=== PATIENT | male | born 1970 | race Caucasian/White ===

== ENCOUNTER 2017-03-02 22:00 | Inpatient (IN) ==
[2017-03-02] MEDS ORDERED: LORazepam 2 MG/ML VIAL IM ONE (22:20)
--- NOTE | 2017-03-02 22:25 | Emergency Department Note ---
Seizure HPI - General Chief Complaint: Headache Stated Complaint: epileptic seizure about 1 hr ago Time Seen by Provider: 03/02/17 22:19 Source: patient, other Mode of arrival: ambulatory - History of Present Illness HPI Narrative: This 46-year-old gentleman comes to the emergency room describing that he had a seizure at home about an hour prior or more before coming to the emergency room EMS had been summoned and he refused to go. A friend then convinced him to come. This friend is from his work and her name is Moon, who seems to be both caring and seems to know him fairly well. He reported a headache that was moderate to severe all day long during work. Then he apparently had a seizure. He became confused and disoriented and was speaking gibberish and, not listening to others, not able to sit still, agitated and persisted with his headache. She convinced him to come to the emergency room For further evaluation and/or treatment. - Related Data Home Medications Medication Instructions Recorded Confirmed Losartan [Cozaar] 25 mg PO DAILY 10/06/15 06/13/16 carBAMazepine [Carbatrol] 200 mg PO DAILY 10/06/15 06/13/16 Allergies Allergy/AdvReac Type Severity Reaction Status Date / Time NO KNOWN DRUG ALLERGIES Allergy Unknown Uncoded 07/21/14 07:08 Review of Systems Review of Systems: General: Denies fevers and chills. CV: Has had some minor chest pains but he relates this to a recent URI. Pulmonary: Has had some cough and shortness of breath which he reports are chronic. GI: Occasional abdominal pain. He denies nausea and vomiting. : He denies dysuria. Derm: He denies rashes. He has some lesions on his left chest wall area. He thinks that they might be spider bites. Neuro: Has had headaches as described above. 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 Heart murmur.). Denies: cancer, CVA, DM, hyperlipidemia, myocardial infarction, thyroid disease, TIA Psychiatric history: Denies: anxiety, depression Surgical history ED: Reports: no surgical history - Social History smoking status: Never smoker Alcohol use: Reports: Frequently (He drinks up to 4 beer at it time and he does this off and on sometimes daily sometimes not.) Drug use: Reports: marijuana (Past, none current.) Physical Exam General appearance: alert, anxious, other (agitated at times. ) Head: normocephalic, other (3 abrasions that are pink-red on the upper forehead ; trace swelling.) Eye: Present: EOMI, other (moderate to severe exophthalmous.) ENT: mucous membranes moist, nasal congestion (mild) Neck: Present: trachea midline. Absent: tenderness, lymphadenopathy, thyromegaly Respiratory: Present: normal lung sounds bilaterally. Absent: respiratory distress, wheezes, stridor, accessory muscle use, prolonged expiratory phase Cardiovascular: Present: regular rate, normal rhythm, systolic murmur (fairly loud; aortic post; 2-3/6.). Absent: diastolic murmur Abdominal: Present: other (moderately firm.). Absent: distention, tenderness, guarding, rebound, rigidity Extremities: Absent: pedal edema, pretibial edema, calf tenderness Neurological: Present: alert, normal gait. Absent: oriented X3 Psychiatric: Present: agitated, anxious, other (tangential, confused, sometimes not answering questions; poor eye contact.) Skin: Present: warm, dry, other (mild to moderate healing shingles in rib nerve root approximately R6 on the left chest wall noted.) Course Vital Signs Temperature 96.9 F L 03/02/17 22:02 Blood Pressure 186/104 03/02/17 22:02 Pulse Oximetry (%) 93 03/02/17 22:02 Temperature 96.9 F L 03/02/17 22:02 Pulse Rate 63 03/03/17 01:45 Respiratory Rate 16 03/03/17 01:45 Blood Pressure 163/91 03/03/17 01:45 Pulse Oximetry (%) 100 03/02/17 23:06 Seizure - MDM Narrative Medical decision making narrative: Patient's friend was quite helpful. She described him as usually quite calm and somewhat reserved. He was quite a bit different than that with speaking in ways not always making sense and somewhat confused and sometimes not listening or answering questions and repeating some things. He sometimes would hold his head as well as he described pain. He describes it as heart murmur he has had in the past. 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 He denies missing doses of his carbamazepine. Because of this unusual situation and presentation, multiple labs were ordered and a CT scan of his head was ordered. Labs were fairly unremarkable except for a sodium of 121 and a mild anemia. A mild liver function test was at 52 for the AST. He demonstrated shingles on his chest wall. Repeat exam around 1:00 demonstrated a market improvement in that he had much less agitation and gibberish or confused thinking and speech and behaviors. With his low sodium, a seizure, and significant mental status changes, I strongly felt he should be observed and monitored and treated. This was discussed with the hospitalist Dr. Robles, who kindly agreed to accept this patient who was admitted to telemetry. - Lab Data Result diagrams: 03/02/17 22:37 03/02/17 22:37 Lab Results 03/02/17 03/02/17 03/02/17 Range/Units 22:37 22:37 22:37 WBC 7.6 (4.5-11.0) K/mcL RBC 4.30 L (4.50-5.90) M/mcL Hgb 13.4 L (13.5-16.5) g/dL Hct 39.7 L (41.0-55.0) % MCV 92.3 (80.0-100.0) fL MCH 31.3 (26.0-34.0) pg MCHC 33.9 (31.0-36.0) g/dL RDW 12.3 (11.5-14.5) % Plt Count 191 (140-440) K/mcL MPV 8.3 (7.4-10.4) fL Gran % 71.3 (38.0-78.0) % Lymph % (Auto) 15.2 L (15.5-49.0) % [place] % (Auto) 11.7 (1.0-12.0) % Eos % (Auto) 1.3 (0.0-7.0) % Baso % (Auto) 0.5 (0.0-2.0) % Gran # 5.4 (1.8-8.0) K/mcL Lymph # (Auto) 1.2 L (1.5-4.8) K/mcL [place] # (Auto) 0.9 (0.1-0.9) K/mcL Eos # (Auto) 0.1 (0.0-0.7) K/mcL Baso # (Auto) 0 (0.0-0.3) K/mcL PT 13.6 (11.9-14.5) sec INR 1.0 (0.9-1.1) APTT 31 (20-37) sec Sodium 121 L (133-145) mmol/L Potassium 3.9 (3.3-5.1) mmol/L Chloride 82 L (96-108) mmol/L Carbon Dioxide 23 (22-30) mmol/L Anion Gap 16.0 (8-16) BUN 14 (6-20) mg/dl Creatinine 0.7 (0.7-1.2) mg/dl GFR Calculation 112 Glucose 116 H (70-105) mg/dL Calcium 9.2 (8.6-10.4) mg/dl Total Bilirubin 0.4 (0.0-1.0) mg/dL AST 52 H (0-37) U/l ALT 30 (0-40) U/l Alkaline Phosphatase 90 (39-117) U/L Total Protein 7.1 (5.9-8.4) gm/dL Albumin 4.6 (3.2-5.2) gm/dL Globulin 2.5 (2.2-3.7) gm/dL Albumin/Globulin Ratio 1.8 (1.0-2.3) TSH (0.27-5.01) uIU/ml Salicylates mg/dL Urine Opiates Screen (NONDETECTED) Ur Oxycodone Screen (NONDETECTED) Urine Methadone Screen (NONDETECTED) Ur Barbiturates Screen (NONDETECTED) Carbamazepine ug/mL Ur Phencyclidine Scrn (NONDETECTED) Ur Amphetamines Screen (NONDETECTED) U Benzodiazepines Scrn (NONDETECTED) Urine Cocaine Screen (NONDETECTED) U Marijuana (THC) Screen (NONDETECTED) Ethyl Alcohol (<0.010) gm/dl 03/02/17 03/02/17 03/02/17 Range/Units 22:37 22:37 22:37 WBC (4.5-11.0) K/mcL RBC (4.50-5.90) M/mcL Hgb (13.5-16.5) g/dL Hct (41.0-55.0) % MCV (80.0-100.0) fL MCH (26.0-34.0) pg MCHC (31.0-36.0) g/dL RDW (11.5-14.5) % Plt Count (140-440) K/mcL MPV (7.4-10.4) fL Gran % (38.0-78.0) % Lymph % (Auto) (15.5-49.0) % [place] % (Auto) (1.0-12.0) % Eos % (Auto) (0.0-7.0) % Baso % (Auto) (0.0-2.0) % Gran # (1.8-8.0) K/mcL Lymph # (Auto) (1.5-4.8) K/mcL [place] # (Auto) (0.1-0.9) K/mcL Eos # (Auto) (0.0-0.7) K/mcL Baso # (Auto) (0.0-0.3) K/mcL PT (11.9-14.5) sec INR (0.9-1.1) APTT (20-37) sec Sodium (133-145) mmol/L Potassium (3.3-5.1) mmol/L Chloride (96-108) mmol/L Carbon Dioxide (22-30) mmol/L Anion Gap (8-16) BUN (6-20) mg/dl Creatinine (0.7-1.2) mg/dl GFR Calculation Glucose (70-105) mg/dL Calcium (8.6-10.4) mg/dl Total Bilirubin (0.0-1.0) mg/dL AST (0-37) U/l ALT (0-40) U/l Alkaline Phosphatase (39-117) U/L Total Protein (5.9-8.4) gm/dL Albumin (3.2-5.2) gm/dL Globulin (2.2-3.7) gm/dL Albumin/Globulin Ratio (1.0-2.3) TSH 2.36 (0.27-5.01) uIU/ml Salicylates mg/dL Urine Opiates Screen (NONDETECTED) Ur Oxycodone Screen (NONDETECTED) Urine Methadone Screen (NONDETECTED) Ur Barbiturates Screen (NONDETECTED) Carbamazepine 4.7 ug/mL Ur Phencyclidine Scrn (NONDETECTED) Ur Amphetamines Screen (NONDETECTED) U Benzodiazepines Scrn (NONDETECTED) Urine Cocaine Screen (NONDETECTED) U Marijuana (THC) Screen (NONDETECTED) Ethyl Alcohol < 0.010 (<0.010) gm/dl 03/02/17 03/02/17 Range/Units 22:37 23:26 WBC (4.5-11.0) K/mcL RBC (4.50-5.90) M/mcL Hgb (13.5-16.5) g/dL Hct (41.0-55.0) % MCV (80.0-100.0) fL MCH (26.0-34.0) pg MCHC (31.0-36.0) g/dL RDW (11.5-14.5) % Plt Count (140-440) K/mcL MPV (7.4-10.4) fL Gran % (38.0-78.0) % Lymph % (Auto) (15.5-49.0) % [place] % (Auto) (1.0-12.0) % Eos % (Auto) (0.0-7.0) % Baso % (Auto) (0.0-2.0) % Gran # (1.8-8.0) K/mcL Lymph # (Auto) (1.5-4.8) K/mcL [place] # (Auto) (0.1-0.9) K/mcL Eos # (Auto) (0.0-0.7) K/mcL Baso # (Auto) (0.0-0.3) K/mcL PT (11.9-14.5) sec INR (0.9-1.1) APTT (20-37) sec Sodium (133-145) mmol/L Potassium (3.3-5.1) mmol/L Chloride (96-108) mmol/L Carbon Dioxide (22-30) mmol/L Anion Gap (8-16) BUN (6-20) mg/dl Creatinine (0.7-1.2) mg/dl GFR Calculation Glucose (70-105) mg/dL Calcium (8.6-10.4) mg/dl Total Bilirubin (0.0-1.0) mg/dL AST (0-37) U/l ALT (0-40) U/l Alkaline Phosphatase (39-117) U/L Total Protein (5.9-8.4) gm/dL Albumin (3.2-5.2) gm/dL Globulin (2.2-3.7) gm/dL Albumin/Globulin Ratio (1.0-2.3) TSH (0.27-5.01) uIU/ml Salicylates 1.3 mg/dL Urine Opiates Screen None detected (NONDETECTED) Ur Oxycodone Screen None detected (NONDETECTED) Urine Methadone Screen None detected (NONDETECTED) Ur Barbiturates Screen None detected (NONDETECTED) Carbamazepine ug/mL Ur Phencyclidine Scrn None detected (NONDETECTED) Ur Amphetamines Screen None detected (NONDETECTED) U Benzodiazepines Scrn None detected (NONDETECTED) Urine Cocaine Screen None detected (NONDETECTED) U Marijuana (THC) Screen None detected (NONDETECTED) Ethyl Alcohol (<0.010) gm/dl Disposition Pt seen by [facility]/PA only: No Clinical Impression: Seizure, Heart murmur, Hyponatremia, Multiple abrasions, Elevated LFTs, Exophthalmos Mental status change Qualifiers: Altered mental status type: disorientation Qualified Code(s): R41.0 - Disorientation, unspecified Headache Qualifiers: Headache type: other headache syndrome Qualified Code(s): G44.89 - Other headache syndrome Shingles rash Qualifiers: Herpes zoster complications: without complications Qualified Code(s): B02.9 - Zoster without complications Aspirin overdose Qualifiers: Encounter type: initial encounter Injury intent: accidental or unintentional Qualified Code(s): T39.011A - Poisoning by aspirin, accidental (unintentional), initial encounter Disposition: Xfer As Inpt ([facility]) Condition: Serious Referrals: Suzi Quan MD [Primary Care Provider] -
[2017-03-02 23:04] LABS: Basophils # (Auto) 0 K/mcL (0.0-0.3); Basophils % (Auto) 0.5 % (0.0-2.0); Eosinophils # (Auto) 0.1 K/mcL (0.0-0.7); Eosinophils % (Auto) 1.3 % (0.0-7.0); Granulocytes % (Auto) 71.3 % (38.0-78.0); Lymphocytes # (Auto) 1.2 K/mcL (1.5-4.8); Lymphocytes % (Auto) 15.2 % (15.5-49.0); Mean Cell Volume 92.3 fL (80.0-100.0); Mean Corpuscular HGB Conc 33.9 g/dL (31.0-36.0); Mean Corpuscular Hemoglobin 31.3 pg (26.0-34.0); Monocytes # (Auto) 0.9 K/mcL (0.1-0.9); Monocytes % (Auto) 11.7 % (1.0-12.0); Platelet Count 191 K/mcL (140-440); Red Cell Distribution Width 12.3 % (11.5-14.5)
[2017-03-02 23:19] LABS: ALT/SGPT 30 U/l (0-40); Albumin 4.6 gm/dL (3.2-5.2); Albumin/Globulin Ratio 1.8 (1.0-2.3); Alkaline Phosphatase 90 U/L (39-117); Blood Urea Nitrogen 14 mg/dl (6-20)
[2017-03-02] MEDS ORDERED: ACETAMINOPHEN 325 MG TABLET PO ONE (23:37)
[2017-03-03 00:06] LABS: Amphetamine Screen,Urine NONE DETECTED (NONDETECTED); Benzodiazepines Screen,Urine NONE DETECTED (NONDETECTED); Cocaine Screen,Urine NONE DETECTED (NONDETECTED); Opiate Screen,Urine NONE DETECTED (NONDETECTED); Oxycodone, Urine Screen NONE DETECTED (NONDETECTED)
[2017-03-03] MEDS ORDERED: ACETAMINOPHEN 325 MG TABLET PO PRN (01:17)
[2017-03-03] MEDS ORDERED: 0.9 % SODIUM CHLORIDE 1,000 ML IV SCH (01:30)
--- NOTE | 2017-03-03 06:04 | Cat Scan Report ---
CLINICAL INFORMATION: Seizures COMPARISON: None. TECHNIQUE: Axial noncontrast-enhanced images through the brain. FINDINGS: No acute intracranial hemorrhage. No intra-axial hematoma. No focal attenuation abnormality or localized mass effect. No midline shift. No hydrocephalus. There is cerebellar atrophy. Brainstem is within normal limits. No intra-axial abnormalities. No extra-axial, intracranial abnormality. No subdural hemorrhage. No subarachnoid hemorrhage. Basilar cisterns are normal. No calvarial fracture. No lytic lesion. Skull base is negative. Examination was initially interpreted by [facility] IMPRESSION: 1. Cerebellar atrophy 2. No acute intracranial abnormality The exam was performed using radiation dose optimization techniques including, but not limited to, automated exposure control, adjustment of the mA and/or kV according to patient size and use of iterative reconstruction technique. Interpreted and Authenticated by: Dequan Mejía 03/03/17
[2017-03-03 06:27] LABS: ALT/SGPT 27 U/l (0-40); Albumin 4.5 gm/dL (3.2-5.2); Alkaline Phosphatase 86 U/L (39-117); Bilirubin,Direct < 0.2 mg/dL (0.0-0.3); Blood Urea Nitrogen 9 mg/dl (6-20); Gamma Glutamyl Transpeptidase 49 U/L (8-61); Magnesium 1.8 mg/dL (1.6-2.5); Uric Acid 4.2 mg/dL (2.5-8.0)
[2017-03-03] MEDS ORDERED: THIAMINE 100 MG in 0.9 % SODIUM CHLORIDE 50 ML IV SCH (09:00)
[2017-03-03] MEDS: CARBAMAZEPINE 300 MG PO SCH (10:23)
[2017-03-03 11:22] LABS: Osmolality,Urine 108 mOsm/kg (80-1000)
--- NOTE | 2017-03-03 11:37 | History and Physical Report ---
DATE OF ADMISSION: 03/03/2017 DATE OF ADMISSION: 03/03/2017 REASON FOR ADMISSION: Breakthrough seizures. HISTORY OF CHIEF COMPLAINT: The patient is a 46-year-old with known history of seizure disorder on carbamazepine and was in a baseline state of health. The patient, per history from the ER, had a seizure in the evening and subsequently told his friend. He was brought in to the emergency department by his friend. Initial workup was remarkable for a sodium of 121. However, patient did not have a witnessed seizure but has had profound mental status change. Initial head CT was negative. The patient carries a history of seizure disorder and has been on carbamazepine. His level has been therapeutic. The patient also drinks roughly four to five alcoholic beverages a day including beer. It is unclear exactly what the precipitant was and subsequently Hospitalist Service was consulted for further evaluation and workup. Because of the patient's underlying mental status, no significant history could be obtained in the ER. At the time of evaluation, the patient is drowsy, fatigued, lethargic. No family members are present. Again, most of the history was obtained from review of medical records and ER physician. The patient was unable to provide answers to review of systems. PAST MEDICAL HISTORY: 1. History of seizure disorder. 2. Hypertension. CURRENT MEDICATIONS: 1. Carbamazepine 200 mg daily. 2. Losartan 25 mg daily. ALLERGIES: None significant. SOCIAL HISTORY: Regular alcohol use. Past history of marijuana. No significant substance or IV drug use. CODE STATUS: FULL CODE. PHYSICAL EXAMINATION: GENERAL: The patient is fatigued, lethargic, unable to respond to verbal questions. HEENT: Exophthalmic. Pupils, however, symmetric. Oral cavity is dry. Abrasion left side forehead. Nontender occiput. No bleeding ear or nose. NECK: No lymphadenopathy, no point tenderness. CHEST: S1, S2, regular rhythm. Diminished breath sounds at bases but symmetrical. ABDOMEN: Soft and nontender. LOWER EXTREMITIES: No cyanosis or clubbing. No joint swelling. SKIN: No suspicious lesions. PSYCHIATRIC: Fatigued, lethargic, confused but no agitation. NEURO: Moving all four extremities, but higher functions could not be performed. LABS AND IMAGING: White count 7.6, hemoglobin 13.4. INR 1. Sodium 121, potassium 3.9, creatinine 0.7. TSH 2.36. AST 52. Toxicology screen: Salicylates 1.3, carbamazepine 4.7, ethyl alcohol less than 0.01. CT head unremarkable except for cerebellar atrophy. ASSESSMENT AND PLAN: A 46-year-old with history of seizure disorder with breakthrough seizure. 1. Breakthrough seizure, unclear etiology. Carbamazepine level is therapeutic. Possibly secondary to precipitated by hyponatremia. Patient will be started on gradual salt replacement at this time. Since patient does not show any active seizures, 3% saline is not indicated. We will continue q.4. sodium checks and continue neurological checks along with seizure watch. Patient be admitted to ICU. 2. Hyponatremia could be secondary to beer potomania. However, in light of seizures SIADH could be truly a component. At this time we will check for urine and serum osmolality along with urine sodium. We will start free water restriction if evidence of ascites. 3. Hypertension. Continue losartan. 4. Prophylaxis will be on Lovenox. Overall, a high-complexity admit of a patient with severe symptomatic hyponatremia and seizures mandating ICU along with neuro checks and q.4 sodium monitoring. PLAN FOR TODAY: 1. q.4 sodium monitoring. 2. MRI brain. AA:salina Job ID: [id number] Doc ID: [id number] Terrell Robles MD
--- NOTE | 2017-03-03 14:43 | Magnetic Resonance Report ---
CLINICAL INFORMATION: Seizures. Agitation. Headache. TECHNIQUE: Sagittal, axial, coronal images of the brain. 7 mL gadolinium administered COMPARISON: Brain CT scan dated 03/02/2017 FINDINGS: No restricted diffusion. No acute infarction. Cerebral hemispheres are abnormal. Susceptibility images demonstrate multiple small round foci of susceptibility within both cerebral hemispheres. Appearance is consistent with hemosiderin deposition and suggests old posttraumatic brain injury. There are foci within the brachium pontis bilaterally and right cerebellar hemisphere. FLAIR images and T2-weighted images demonstrate multiple foci of increased signal intensity in the white matter of both cerebral hemispheres. Findings are in both a subcortical and periventricular distribution. Appearance is nonspecific. Findings may be due to small vessel ischemic change although this would be abnormal for age. Clinical correlation for hypertension or diabetes recommended. Distribution is atypical for demyelinating disease although this is possible. Vasculitis should be considered. No intra-axial enhancing lesions. No evidence for neoplasm. Cerebral hemispheres demonstrate normal brain volume. No hydrocephalus. There is cerebellar atrophy. Brainstem is negative. No extra-axial, intracranial abnormality. Normal flow void within vessels at the base of the brain. No pathologic leptomeningeal or dural enhancement. Temporal lobes are intrinsically negative. No focal signal abnormality. IMPRESSION: 1. No acute infarction. 2. Susceptibility images are abnormal with multiple small foci of susceptibility. 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 White matter abnormality is nonspecific 4. No enhancing abnormality. No evidence for neoplasm. 5. Cerebellar atrophy Interpreted and Authenticated by: Dequan Mejía 03/03/17
[2017-03-03] MEDS ORDERED: OLANZapine 2.5 MG TABLET PO ONE ×2 (21:43→21:56)
[2017-03-03] MEDS: LORazepam 2 MG/ML VIAL IV PRN (21:52)
[2017-03-03] MEDS ORDERED: ACYCLOVIR 400 MG TABLET PO ONE (21:55)
[2017-03-04] MEDS: LORazepam 2 MG/ML VIAL IV PRN (01:14)
[2017-03-04 05:20] LABS: Basophils # (Auto) 0 K/mcL (0.0-0.3); Basophils % (Auto) 0.5 % (0.0-2.0); Eosinophils # (Auto) 0.1 K/mcL (0.0-0.7); Eosinophils % (Auto) 2.5 % (0.0-7.0); Granulocytes % (Auto) 61.2 % (38.0-78.0); Lymphocytes # (Auto) 0.9 K/mcL (1.5-4.8); Lymphocytes % (Auto) 19.6 % (15.5-49.0); Mean Cell Volume 93.1 fL (80.0-100.0); Mean Corpuscular HGB Conc 33.8 g/dL (31.0-36.0); Mean Corpuscular Hemoglobin 31.5 pg (26.0-34.0); Monocytes # (Auto) 0.8 K/mcL (0.1-0.9); Monocytes % (Auto) 16.2 % (1.0-12.0); Platelet Count 197 K/mcL (140-440); RBC 4.24 M/mcL (4.50-5.90); Red Cell Distribution Width 12.8 % (11.5-14.5)
[2017-03-04 07:12] LABS: ALT/SGPT 23 U/l (0-40); Albumin 4.4 gm/dL (3.2-5.2); Albumin/Globulin Ratio 2.2 (1.0-2.3); Alkaline Phosphatase 82 U/L (39-117); Bilirubin,Direct < 0.2 mg/dL (0.0-0.3); Blood Urea Nitrogen 11 mg/dl (6-20); Gamma Glutamyl Transpeptidase 47 U/L (8-61); Uric Acid 3.6 mg/dL (2.5-8.0)
[2017-03-04] MEDS ORDERED: THIAMINE 100 MG TABLET PO SCH (09:00)
[2017-03-04] MEDS: CARBAMAZEPINE 300 MG PO SCH (09:55)
--- NOTE | 2017-03-04 11:56 | Discharge Summary ---
Medical - DS: Prov Patient information: Note initiated : 03/04/17 at 11:49 am Service Date, if different from initiated Date: [] Patient: Doug Craft 46 y/o M admitted on 03/03/17 for Epileptic Seizure about 1 hr ago. Chief Complaint: [] Date of admission: 03/03/17 02:14 Discharge date: 03/04/17 Primary care physician: Suzi Quan Consults: 03/03/17 02:00 Consult to Physician [CONS] Routine Comment: Consulting Provider: Terrell Robles Reason For Exam: Physician to Consult Medical - DS: Meds - Discharge Medications Prescriptions: carBAMazepine [Equetro] 300 mg PO Q24 #30 cap Active and Home Medications: Home Medications Vitamin B-50 Complex Tablet 1 tablet PO DAILY 03/03/17 [History Confirmed Last Taken 03/02/17 08:00] Carbatrol 300 mg PO DAILY #30 03/04/17 [Rx Last Taken Unknown] Medical - DS: Hosp Hospital course: DISCHARGE DIAGNOSIS * breakthrough seizures- patient managed on home dose carbamazepine. no further seizure activity noted during hospitalization. * Acute change in mental status- Clinically improved with normalization of sodium levels * symptomatic hyponatremia-Secondary to excess alcoholism and solute loss. Patient improved within 36 hours from 121-132. Urine osmolarity appropriately low suggesting against SIADH. * hypertension- follow primary care physician for optimization * history of paranoia-recommend outpatient psychiatry follow-up. Patient is functional baseline with intermittent episodes of paranoid behavior BRIEF HOSPITAL COURSE Mr. Craft is a 46 year old M mandated following seizure likely secondary to symptomatic hyponatremia with sodium level of 121. Carbamazepine level therapeutic. Patient was managed on serial sodium levels with gradual salt replacement with resultant improvement in sodium from 121-132. No further seizure activity noted during 36 hours of hospitalization. patient is being discharged advised to follow-up with neurology and primary care physician as outpatient. he is advised to refrain from excessive alcohol use. Discharge diagnosis: . - Time Spent with Patient Total time spent providing and/or coordinating discharge services: Greater than 30 minutes Medical - DS: Exam - Constitutional Vitals: Vital Signs Temp Resp BP BP BP Pulse Ox 03/04/17 08:00 98.1 F 15 136/80 99 03/04/17 04:00 98.1 F 15 116/67 99 03/03/17 23:37 98.6 F 17 159/91 100 03/03/17 20:18 98.9 F 16 154/97 97 03/03/17 18:00 97 03/03/17 15:59 98.1 F 16 149/83 100 03/03/17 11:58 97.7 F 18 169/87 97 Intake and Output 03/03/17 03/04/17 03/04/17 21:59 05:59 13:59 Intake Total 1011 / 1011 690 / 690 540 / 540 Output Total 725 / 725 750 / 750 Balance 286 / 286 -60 / -60 540 / 540 Intake: IV 51 / 51 Vitamin B1 100 mg In Sodium 51 / 51 Chloride 0.9% 50 ml @ 50 mls/hr IV DAILY [facility] Rx#:[id number] Oral 960 / 960 690 / 690 540 / 540 Output: Void Amount 725 / 725 750 / 750 Other: Meal Lunch Tuna sandwich Breakfast Percent of Meal Consumed 100% 100% 100% Feeding Ability Independent Assist with Tray Set Up Weight 149 lb 3.2 oz Medical - DS: Data Labs on day of discharge: Labs from last 24 hours 03/04/17 03/04/17 03/04/17 08:15 03:57 03:57 WBC RBC Hgb Hct MCV MCH MCHC RDW Plt Count MPV Gran % Lymph % (Auto) [place] % (Auto) Eos % (Auto) Baso % (Auto) Gran # Lymph # (Auto) [place] # (Auto) Eos # (Auto) Baso # (Auto) Sodium 131 L 132 L 130 L Potassium 3.7 Chloride 93 L Carbon Dioxide 25 Anion Gap 14.0 BUN 11 Creatinine 0.7 GFR Calculation 112 Glucose 106 H Uric Acid 3.6 Calcium 8.9 Phosphorus 4.9 H Magnesium 2.0 Total Bilirubin 0.3 Direct Bilirubin < 0.2 GGT 47 AST 29 ALT 23 Alkaline Phosphatase 82 Lactate Dehydrogenase 233 Total Protein 6.4 Albumin 4.4 Globulin 2.0 L Albumin/Globulin Ratio 2.2 Triglycerides 40 03/04/17 03/03/17 03/03/17 03:57 23:32 18:58 WBC 4.7 RBC 4.24 L Hgb 13.3 L Hct 39.4 L MCV 93.1 MCH 31.5 MCHC 33.8 RDW 12.8 Plt Count 197 MPV 8.6 Gran % 61.2 Lymph % (Auto) 19.6 [place] % (Auto) 16.2 H Eos % (Auto) 2.5 Baso % (Auto) 0.5 Gran # 2.9 Lymph # (Auto) 0.9 L [place] # (Auto) 0.8 Eos # (Auto) 0.1 Baso # (Auto) 0 Sodium 126 L 127 L Potassium Chloride Carbon Dioxide Anion Gap BUN Creatinine GFR Calculation Glucose Uric Acid Calcium Phosphorus Magnesium Total Bilirubin Direct Bilirubin GGT AST ALT Alkaline Phosphatase Lactate Dehydrogenase Total Protein Albumin Globulin Albumin/Globulin Ratio Triglycerides 03/03/17 03/03/17 15:00 09:53 WBC RBC Hgb Hct MCV MCH MCHC RDW Plt Count MPV Gran % Lymph % (Auto) [place] % (Auto) Eos % (Auto) Baso % (Auto) Gran # Lymph # (Auto) [place] # (Auto) Eos # (Auto) Baso # (Auto) Sodium 129 L 129 L Potassium Chloride Carbon Dioxide Anion Gap BUN Creatinine GFR Calculation Glucose Uric Acid Calcium Phosphorus Magnesium Total Bilirubin Direct Bilirubin GGT AST ALT Alkaline Phosphatase Lactate Dehydrogenase Total Protein Albumin Globulin Albumin/Globulin Ratio Triglycerides Medical - DS: A/P - Patient/Caregiver Discharge Instructions Activity: increase activity as tolerated Diet: Regular Diet Additional Instructions: avoid alcohol take regular salt diet Follow-up PCP/neurology in 1 week Prescriptions: carBAMazepine [Equetro] 300 mg PO Q24 #30 cap - Follow up Plan Follow up with: Suzi Quan MD [Primary Care Provider] - 04/07/17 4:15 pm (Dr. Koenig office will call you for an earlier appointment if they have a cancellation.) Disposition: Home, Self-Care Prognosis: Fair Rehab Potential: Fair I certify that the patient requires SNF services: No Overall status at discharge: patient is progressing back to baseline Medical - DS: Qual - VTE Deep Vein Thrombosis/Pulmonary Embolism Present on Admission: No
== END 2017-03-04 17:20 | disposition home or self-care (01) | DRG 101 ==
LOC: ED 22:00 → ICU 03-03 02:14
PROVIDERS: ADMIT Internal Medicine; ATTEND Internal Medicine